=== PATIENT | male | born 1995 | race Caucasian/White ===

== ENCOUNTER → 2019-03-08 | Outpatient (CLI) | payer OTHER ==
--- NOTE | 2019-03-08 09:24 | PFTRPT ---
Height: 74.00 Inches Weight: 170.00 Lbs BSA: 2.03 Diagnosis: DYSPNEA DATE OF PROCEDURE: 03/08/2019 ORDERED BY: Arun Lynn PA-C Spirometry: Pre and post bronchodilator study of excellent technical quality. Difficulty with effort is identified. Forced vital capacity normal. FEV1 in proportion. Obstructive index is, therefore, normal. Flow Volume Loop: Expiratory limb of the flow volume loop is reasonably normal despite suboptimal effort. No significant bronchodilator response identified. Lung Volumes: Total lung capacity normal. Residual volume raises the question of air trapping. Diffusing Capacity: Diffusing capacity is normal and remains normal when corrected for alveolar volume. Hemoglobin: Hemoglobin acceptable at 13.4. Airway Mechanics: Airway resistance and conductance are normal. IMPRESSION: Cannot rule out a degree of air trapping. Please correlate clinically. MTDD
== END ==
LOC: M CARPUL 08:45
PROVIDERS: ATTEND Physician Assistant
DX: R06.02 Shortness of breath (principal)

== ENCOUNTER → 2020-04-25 | Outpatient (CLI) | payer SELFPAY | LOC: M LABSMTC 09:54 | PROVIDERS: ATTEND Pediatrics | DX: Z11.52 Encounter for screening for COVID-19 (principal) ==